=== PATIENT | female | born 1960 | race Two or more races ===

== ENCOUNTER → 2020-05-27 12:55 | Outpatient (CLI) | payer OTHER | END | disposition home or self-care (01) | LOC: LAB 12:55 | PROVIDERS: ATTEND Radiology Diagnostic Radiology | DX: N82.3 Fistula of vagina to large intestine (principal) ==

== ENCOUNTER 2020-06-01 08:06 | Outpatient (CLI) | payer OTHER | END 2020-06-01 09:01 | disposition home or self-care (01) | LOC: TOM 08:06 | PROVIDERS: ATTEND Internal Medicine Gastroenterology | DX: N82.3 Fistula of vagina to large intestine (principal) ==